=== PATIENT | female | born 1990 ===

== ENCOUNTER 2020-07-30 09:53 | Inpatient (IN) | payer OTHER ==
[~2020-07-30] VITALS: Ht 165.1 cm; Wt 93.8 kg
[2020-07-30] VITALS (20 sets, daily range): BP systolic 110–183; BP diastolic 59–137
[2020-07-30] MEDS ORDERED: MULTTAB20 PO (10:32)
[2020-07-30 11:25] LABS: HEMATOCRIT 39.1 % (36.0-47.0); HEMOGLOBIN 12.9 g/dl (12.0-15.5); MEAN CORPUSCULAR VOLUME 87.9 fl (80.0-96.0); PLATELET COUNT, AUTOMATED 230 10^3/uL (150-450); RED BLOOD COUNT 4.45 10^6/uL (4.00-5.40); WHITE BLOOD COUNT 11.1 10^3/uL (4.0-10.0)
[2020-07-30] MEDS ORDERED: OXYTOCIN 30 UNITS IN 0.9% NaCl 500ML IV BAG (J2590) As Ordered ONE (12:31)
[2020-07-30] MEDS ORDERED: FENTANYL 2MCG/ML ROPIVACAINE 0.2% IN 0.9% NACL 100ML IVBAG As Ordered ONE (12:32)
--- NOTE | 2020-07-30 13:34 | HPEPDOC ---
Obstetrical History & Physical General Date of Admission Jul 30, 2020 at 10:45 History of Present Illness 30-year-old 5 para 4 who presents at 40 weeks 3 days estimated gestational age with complaints of contractions. She reports approximately 3 AM this morning started to experience contractions that have increased in intensity and frequency. She reports active movements she denies any vaginal bleeding or leakage of fluid. Information Provided By: Patient Age: 30 : 5 Livin Care Care: Good Care Dating Final EDC: Jul 27, 2020 Final EDC by: 1st trimester (US) EGA at Admission: 40 Past Medical History Past Obstetrical History #1: Past Obstetrical History: Primgravida Type of Delivery: Spontaneous Vaginal Del. Sex of : Male Complications: No Past Obstetrical History #2: Past Obstetrical History: Multigravida Type of Delivery: Spontaneous Vaginal Del. Sex of : Male Complications: No Past Obstetrical History #3: Past Obstetrical History: Multigravida Type of Delivery: Spontaneous Vaginal Del. Sex of Infant: Female Past Obstetrical History #4: Past Obstetrical History: Multigravida Type of Delivery: Spontaneous Vaginal Del. Sex of : Female Complications: No DRAFTER TOPOGRAPHICAL History: No pertinent history Past Medical History Medical History Asthma Surgical History: [place] teeth Family History Significant Family History: No pertinent family hx Social History Marital Status: Family situation: Spouse/partner home * Smoker: non-smoker Alcohol: Denies Drugs: denies Allergies Uncoded Allergies: Shellfish (Allergy, Severe, Throat closes, 07/30/20) Medications Scheduled No122/Iron/Folic Acid ( Multi Tablet) 1 Each Tablet, 1 TAB PO DAILY Physical Examination Physical Examination GENERAL: Alert and oriented times three. BREAST: . ABDOMEN: Gravid and non-tender to touch. FETUS: Is vertex (VTX) by sterile vaginal examination (SVE), fetus is vertex (VTX) by [place]. HEART RATE: Regular rate and rhythm. LUNGS: Clear to auscultation (CTA). Laboratory Data 24H LABS Laboratory Tests 2 07/30/20 10:51: Serology Scanned Report Hepatitis B Testing 07/30/20 11:08: Nucleated Red Blood Cells % (auto) 0.0, Syphilis Serology NONREACTIVE CBC/BMP Laboratory Tests 07/30/20 11:08 Pertinent Laboratoy Data Blood Type: A+ RBC Antibody Screen: Negative HIV: Negative Hepatitis B: Negative Rapid Plasma Reagin: Nonreactive Rubella: Immune Chlamydia/Gonorrhea: Negative Group B Streptococcus: Negative Cystic Fibrosis: Negative Glucose Tolerance Test: 106 Vaginal Examination Dilation: 6 cm Effacement: 80% Station: -2 Cervical Consistency: Soft Cervical Position: Anterior Presentation: Cephalic presentation Assessment Heart Rate (FHR): 120 Variability: Moderate Accelerations: Positive Tocometer Frequency: regular Assessment/Plan Assessment 21-year-old 5 para 4 at 40 weeks and 3 days in active labor Reassuring status Admit to labor and delivery CBC RPR type and screen Patient's been thoroughly counseled regards labor and delivery and discussed medications procedure performed labor and delivery she is also been verbally consented for emergency surgery blood products anesthesia and desires to proceed with admission Plan Admit and orient. Manager Editorial and consent. Group B Streptococcus (GBS) negative. Labs and intravenous (IV) per unit protocol. Counseled on Pitocin and induction of labor (IOL). Anticipate normal spontaneous delivery (). C-S as appropriate. ARIE WINSTON MD. Jul 30, 2020 13:34
[2020-07-30] MEDS: FENTANYL/ROPIVACAINE/NACL BAG 100 ML EPIDURAL SCH ×2 (13:36→14:18)
--- NOTE | 2020-07-30 14:38 | DNPDOC ---
[facility] Delivery Note Delivery Note DATE OF DELIVERY: 07/30/2020 TIME OF : 1405 GENDER: Female APGARS: 9 and 9 WEIGHT: 8 pounds 4 ounces or 3740 LACERATIONS: None. ANESTHESIA: Epidural. COUNTS: Five laparotomy sponges accounted for prior and after delivery. DESCRIPTION OF DELIVERY: On 07/30/2020 at 1405, this patient a 30-year-old gr avida 5 now para 5, had a spontaneous vaginal delivery of a live born female infant. Apgars 9 and 9. Weight 3740 or 8 pounds 4 ounces. Head was delivered occiput anterior (OA) over intact peritoneum. There was a nuchal cord, which was manually reduced, followed by delivery of shoulders and corpus. The infant was handed to mom with a good cry. Cord was clamped x2 and was cut by the father of the baby under my direction. There was a cord blood obtained via the kit. Placenta was then delivered grossly intact. A premixed bag of 500 mL of 30 units of Pitocin was normal saline was bolus along with uterine massage. The uterus was firm. On inspection of the cervix and vagina, the peritoneum was grossly intact and hemostatic. Mom and baby are in recovery in stable condition. The couple decided to name their daughter Naida. ARIE WINSTON MD. Jul 30, 2020 14:38
[2020-07-30] MEDS ORDERED: ePHEDrine SULFATE 25 MG/5 ML(5MG/ML) SYRINGE IV PRN (16:30)
[2020-07-30] MEDS ORDERED: REFRIGERATOR IV KEYS XX PRN (16:30)
[2020-07-30] MEDS ORDERED: diphenhydrAMINE 50MG/ML VIAL (J1200) IV PRN (16:30)
[2020-07-30] MEDS ORDERED: SLF 3 ML SYR IV PRN ×2 (16:30→17:45)
[2020-07-30] MEDS ORDERED: NALOXONE INJ 0.4MG/1ML VIAL (J2310 PER 1MG) IV PRN (16:30)
[2020-07-30] MEDS ORDERED: EPIDURAL/PCA KEYS XX PRN (16:30)
[2020-07-30] MEDS ORDERED: ONDANSETRON 4MG/2ML VIAL IV PRN (16:30)
[2020-07-30] MEDS ORDERED: EPIDURAL COMMENT XX SCH (16:30)
[2020-07-30] MEDS ORDERED: LACTATED RINGER'S 1000 ML IV PRN (16:30)
[2020-07-30] MEDS ORDERED: OXYTOCIN DRIP 30 UNITS in IV 1 EA IV SCH (16:50)
[2020-07-30] MEDS ORDERED: ANUSOL HC CREAM 30GM TOP PRN (17:00)
[2020-07-30] MEDS ORDERED: MOM 30ML SUSPENSION UDC PO PRN (17:00)
[2020-07-30] MEDS ORDERED: DOCUSATE SODIUM 100 MG CAP PO PRN (17:00)
[2020-07-30] MEDS ORDERED: METHYLERGONOVINE MALEATE 0.2 MG TAB PO PRN (17:00)
[2020-07-30] MEDS ORDERED: ACETAMINOPHEN TAB 650MG DOSE (2X325MG) PO PRN (17:00)
[2020-07-30] MEDS ORDERED: DIBUCAINE 1% OINTMENT 30GM TOP PRN (17:00)
[2020-07-30] MEDS ORDERED: MEASLES,MUMPS,RUBELLA VACCINE INJ (MMR-II) (90707) SC SCH (17:00)
[2020-07-30] MEDS ORDERED: RHOGAM 300 MCG (1500 IU) INJ (J2790) IM SCH (17:00)
[2020-07-30] MEDS ORDERED: IBUPROFEN 600MG TAB PO PRN (17:00)
[2020-07-30] MEDS: IBUPROFEN 800 MG TAB PO PRN (19:32)
[2020-07-30] MEDS ORDERED: SLF 3 ML SYR IV SCH (22:00)
[2020-07-30] MEDS: SLF 3 ML SYR IV SCH (22:24)
[2020-07-31] MEDS: ACETAMINOPHEN 500 MG TAB PO PRN ×3 (02:47→19:34)
[2020-07-31] MEDS: IBUPROFEN 800 MG TAB PO PRN ×2 (05:22→16:57)
[2020-07-31] MEDS: SLF 3 ML SYR IV SCH ×2 (05:23→14:00)
[2020-07-31 06:00] VITALS: BP 119/67
[2020-07-31] MEDS: PRENATAL VITAMINS CHEWABLE TABLET PO SCH (08:31)
[2020-07-31 17:47] VITALS: BP 131/76
[2020-08-01] MEDS: IBUPROFEN 800 MG TAB PO PRN (02:42)
[2020-08-01 06:04] VITALS: BP 111/65
[2020-08-01] MEDS ORDERED: IBUP80TA PO (07:35)
[2020-08-01] MEDS ORDERED: DIBU10OI TOP (07:35)
[2020-08-01] MEDS ORDERED: DOCU100C16 PO (07:35)
[2020-08-01] MEDS: ACETAMINOPHEN 500 MG TAB PO PRN (08:25)
[2020-08-01] MEDS: PRENATAL VITAMINS CHEWABLE TABLET PO SCH (08:25)
--- NOTE | 2020-08-01 13:49 | DS ---
DATE OF ADMISSION: 07/30/2020 DATE OF DISCHARGE: 08/01/2020 BRIEF HISTORY: This lady is a 30-year-old 5 now para 5 admitted in active labor, had a live female infant, 8 pounds 4 ounces, 3740 grams, 9 and 9 at 1 and 5 minutes respectively were the apgars, had an Epidural in place. She sustained no vaginal tears or lacerations. On discharge, we discussed phlebitis, cystitis, mastitis, endometritis, and cellulitis, diet, exercise, pain management, perineal, breast, and wound care. The rest of the examination is unremarkable. Normocephalic, atraumatic. Neck full range of motion. Pupils equal and reactive to light. Distal pulses are symmetric. No evidence of DVT, PE, or superficial phlebitis. Chest is clear to bilateral bases. No wheezes or rhonchi. No CVA tenderness. Abdomen is soft. Four quadrant bowel sounds are noted. Perineum is intact. No rashes, lesions, or pruritus. No arthralgia or myalgia. No complaint of joint pain. No complaint of cough, wheeze, shortness of breath, or dyspnea on exertion. No nausea, vomiting, diarrhea, or constipation. No urgency or frequency. SUMMARY: We have a term gestation, delivered a live female . Medications were dispensed at [place]. 6 week check up at the [facility]. All questions were answered. 20 minute discussion. A breast pump application was dispensed with the patient. MTDD
== END 2020-08-01 11:13 | disposition home or self-care (01) | DRG 807 ==
LOC: M LDO 09:53 → M LDI 10:45 → M OBS 17:08
PROVIDERS: ADMIT Obstetrics & Gynecology; ATTEND Obstetrics & Gynecology
PROC: 10E0XZZ Delivery of Products of Conception, External Approach (ICD-10-PCS; principal; 2020-07-30)
DX: O48.0 Post-term pregnancy (principal); Z37.0 Single live birth; Z3A.40 40 weeks gestation of pregnancy; O69.82X0 Labor and delivery complicated by other cord entanglement, without compression, not applicable or unspecified